=== PATIENT | female | born 1980 | race Caucasian/White ===

== ENCOUNTER → 2016-03-05 | Outpatient (CLI) | payer OTHER ==
--- NOTE | 2016-03-05 16:08 | DX ---
Fluoroscopy: 0.1 minute of intraoperative fluoroscopy was utilized by Dr. Carolina for left hip injection. A single radiograph demonstrates a needle with the tip projecting over the left femoral neck.
== END ==
LOC: BMCIMAGING 14:05
PROVIDERS: ATTEND Orthopaedic Surgery
PROC: BQ11YZZ Fluoroscopy of Left Hip using Other Contrast (ICD-10-PCS; principal; 2016-03-05)
DX: M25.552 Pain in left hip (principal)